=== PATIENT | male | born 1995 | race African-American/Black ===

== ENCOUNTER 2016-12-28 14:17 | Emergency (ER) | payer MEDICAID ==
[~2016-12-28] VITALS: Wt 68.0 kg
[2016-12-28] MEDS ORDERED: LORAZEPAM 2 MG INJ IV STA (14:21)
[2016-12-28] MEDS ORDERED: SOD CHLORIDE 0.9% 1,000 ML IV STA (14:21)
[2016-12-28 15:07] LABS: BASOPHIL # 0.1 10^3/ul (0.0-0.1); BASOPHILS % 0.6 % (0.0-2.0); EOSINOPHILS # 0.3 10^3/ul (0.0-0.5); EOSINOPHILS % 4.2 % (0.0-7.0); HEMATOCRIT 42.9 % (42.0-52.0); LYMPHOCYTES # 1.4 10^3/ul (0.8-2.9); LYMPHOCYTES % 17.6 % (18.0-55.0); MEAN CORPUSCULAR HEMOGLOBIN 31.9 pg (29.0-33.0); MEAN CORPUSCULAR VOLUME 91.3 fl (72.0-104.0); MEAN PLATELET VOLUME 9.7 fl (7.4-10.4); MONOCYTE # 0.6 10^3/ul (0.3-0.9); MONOCYTES % 7.5 % (0.0-13.0); NEUTROPHIL # 5.6 10^3/ul (1.6-7.5); NEUTROPHILS % 69.8 % (30.0-74.0); PLATELET COUNT 194 10^3/UL (140-415); RED CELL DISTRIBUTION WIDTH 11.7 % (11.5-14.5)
[2016-12-28 15:39] LABS: CALCIUM 10.1 mg/dl (8.4-10.2); CREATININE 1.02 mg/dl (0.61-1.24); POTASSIUM 3.7 mmol/L (3.5-5.1)
[2016-12-28 16:20] VITALS: BP 138/74; PULSE 77; RESP 18; TEMP 98.6
--- NOTE | 2016-12-28 16:44 | ERD ---
ER Documentation Chief Complaint Date/Time DATE: 12/28/16 TIME: 16:42 Chief Complaint SEIZURE WHILE AT WORK NO SIGNS OF TRAUMA. ALERT ON ARRIVAL HPI Patient is a 21-year-old male with seizures who presents with a seizure. The patient was brought in by ambulance. The patient had a seizure while working at a [employer]. He is not currently receiving antiseizure medicine and he is supposed to be on seizure medicines. He stopped these medications on his own a few months ago. His brother is also here with a seizure and has a seizure history as well. He does not currently have a primary doctor. He is back to his baseline at this time. ROS All systems reviewed and are negative except as per history of present illness. Medications Home Meds No Active Prescriptions or Reported Meds Allergies Allergies: Coded Allergies: No Known Allergy (Unverified , 12/28/16) PMhx/Soc Positive for seizure FmHx Family History: No diabetes Physical Exam Vitals Vital Signs Date Time Temp Pulse Resp B/P Pulse Ox O2 Delivery O2 Flow Rate FiO2 12/28/16 14:51 98.6 100 21 144/85 98 Physical Exam Const: No acute distress Head: Atraumatic Eyes: Normal Conjunctiva ENT: Normal External Ears, Nose and Mouth. Neck: Full range of motion..~ No meningismus. Resp: Clear to auscultation bilaterally Cardio: Regular rate and rhythm, no murmurs Abd: Soft, non tender, non distended. Normal bowel sounds Skin: No petechiae or rashes Back: No midline or flank tenderness Ext: No cyanosis, or edema Neur: Awake and alert Psych: Normal Mood and Affect Result Diagram: 12/28/16 1445 12/28/16 1445 Results 24 hrs Laboratory Tests Test 12/28/16 14:45 White Blood Count 8.010^3/ul Red Blood Count 4.7010^6/ul Hemoglobin 15.0g/dl Hematocrit 42.9% Mean Corpuscular Volume 91.3fl Mean Corpuscular Hemoglobin 31.9pg Mean Corpuscular Hemoglobin Concent 35.0g/dl Red Cell Distribution Width 11.7% Platelet Count 93616^3/UL Mean Platelet Volume 9.7fl Neutrophils % 69.8% Lymphocytes % 17.6% Monocytes % 7.5% Eosinophils % 4.2% Basophils % 0.6% Nucleated Red Blood Cells % 0.0/100WBC Neutrophils # 5.610^3/ul Lymphocytes # 1.410^3/ul Monocytes # 0.610^3/ul Eosinophils # 0.310^3/ul Basophils # 0.110^3/ul Nucleated Red Blood Cells # 0.010^3/ul Sodium Level 139mmol/L Potassium Level 3.7mmol/L Chloride Level 104mmol/L Carbon Dioxide Level 24mmol/L Anion Gap 15 Blood Urea Nitrogen 9mg/dl Creatinine 1.02mg/dl Glucose Level 116mg/dl Calcium Level 10.1mg/dl Current Medications Medications (Trade) Dose Ordered Sig/Chanda Route PRN Reason Start Time Stop Time Status Last Admin Dose Admin Sodium Chloride (NS) 1,000 ml @ 1,000 mls/hr Q1H STAT IV 12/28/16 14:21 12/28/16 15:20 DC 12/28/16 14:21 Lorazepam (Ativan) 0.5 mg ONCE STAT IV 12/28/16 14:21 12/28/16 14:22 DC 12/28/16 14:21 Procedures/MDM Smoking Cessation Therapy: Pt. was lectured for greater than 3 minutes on the health risks of continued smoking and the benefits of cessation. Patient is a 21-year-old male with seizures who presents with a seizure. The patient will be discharged as the patient's laboratory studies are normal. The patient will need to follow-up with a primary doctor the local clinics as he does not currently have a primary doctor. He likely needs to be on antiseizure medicines. I doubt meningitis or intracranial hemorrhage and I believe the risk of doing a CT scan of the brain outweigh the benefits. Departure Diagnosis: Primary Impression: Seizure disorder Condition: Fair Patient Instructions: Seizure, Recurrent [Adult] Referrals: [facility] YOU HAVE RECEIVED A MEDICAL SCREENING EXAM AND THE RESULTS INDICATE THAT YOU DO NOT HAVE A CONDITION THAT REQUIRES URGENT TREATMENT IN THE EMERGENCY DEPARTMENT. FURTHER EVALUATION AND TREATMENT OF YOUR CONDITION CAN WAIT UNTIL YOU ARE SEEN IN YOUR DOCTORS OFFICE WITHIN THE NEXT 1-2 DAYS. IT IS YOUR RESPONSIBILITY TO MAKE AN APPOINTMENT FOR FOLOW-UP CARE. IF YOU HAVE A PRIMARY DOCTOR --you should call your primary doctor and schedule an appointment IF YOU DO NOT HAVE A PRIMARY DOCTOR YOU CAN CALL OUR PHYSICIAN REFERRAL HOTLINE AT IF YOU CAN NOT AFFORD TO SEE A PHYSICIAN YOU CAN CHOSE FROM THE FOLLOWING [facility] [address] [facility] [address] [facility]. [facility] [address] [facility] [address] [facility]. [facility] [id number] [facility] [facility] [address] Additional Instructions: Call your primary care doctor TOMORROW for an appointment during the next 1-2 days.See the doctor sooner or return here if your condition worsens before your appointment time. JASKARAN HEAD MD Dec 28, 2016 16:44
== END 2016-12-28 16:50 | disposition home or self-care (01) ==
LOC: E/R 14:17
DX: G40.909 Epilepsy, unspecified, not intractable, without status epilepticus (principal)
CPT/HCPCS: 36415; 80048; 85025; 96374; J2060; J7030; Z7502